=== PATIENT | female | born 1950 | race Caucasian/White ===

== ENCOUNTER 2018-04-14 14:04 | Emergency (ER) | payer MEDICARE, OTHER ==
[~2018-04-14] VITALS: Ht 170.2 cm; Wt 87.3 kg
[2018-04-14 14:14] VITALS: BP 112/58
--- NOTE | 2018-04-14 14:40 | NUR ---
67f bib self with c/o 3/10 mid abdominal pain since this morning; denies n/v/d or fevers. Patient is aox4 to person, place, and situation. RR are even and unlabored. Abd soft and non tender. Patient denies any urinary complaints. Patient changed into gown. Er md sparrow by bedside examining pt. All needs met at this time. Will continue to monitor.
--- NOTE | 2018-04-14 14:50 | NUR ---
lab by bedside
[2018-04-14 14:53] LABS: APPEARANCE,URINE CLOUDY (CLEAR); BILIRUBIN,URINE NEGATIVE (NEGATIVE); BLOOD, URINE MODERATE (NEGATIVE); COLOR,URINE YELLOW (YELLOW); LEUKOCYTE ESTERASE ,URINE 2+ (NEGATIVE); NITRITE, URINE POSITIVE (NEGATIVE); UGLUCOSE NEGATIVE (NEGATIVE)
--- NOTE | 2018-04-14 15:10 | NUR ---
pt to ct via josel[facility] accompanied by radiogy tech
[2018-04-14 15:11] LABS: RBC,URINE NONE SEEN /HPF (0-5); WBC,URINE 20-60 /HPF (0-5)
[2018-04-14 15:16] LABS: BASOPHILS # (AUTO) 0.1 K/uL (0.00-0.22); BASOPHILS % (AUTO) 0.8 % (0.0-2.0); EOSINOPHILS # (AUTO) 0.2 K/uL (0-0.4); EOSINOPHILS % (AUTO) 2.9 % (0.0-4.0); HEMATOCRIT 38.6 % (36-48); HEMOGLOBIN 12.3 g/dL (12.0-16.0); LYMPHOCYTES # (AUTO) 2.2 K/uL (2.5-16.5); LYMPHOCYTES % (AUTO) 34.6 % (20.5-51.1); MEAN CORPUSCULAR HEMOGLOBIN 30 pg (27-31); MEAN CORPUSCULAR HGB CONC 32 g/dL (33-37); MEAN CORPUSCULAR VOLUME 92.7 fL (80-94); MONOCYTES # (AUTO) 0.8 K/uL (0.8-1.0); NEUTROPHILS # (AUTO) 3.1 K/uL (1.8-7.7); NEUTROPHILS % (AUTO) 48.7 % (42.2-75.2); PLATELET COUNT (AUTO) 211 K/uL (140-450); RED BLOOD CELL COUNT(AUTO) 4.17 MIL/uL (4.20-5.40); RED CELL DISTRIBUTION WIDTH 14.8 % (11.6-13.7); WHITE BLOOD COUNT (AUTO) 6.4 K/uL (4.8-10.8)
--- NOTE | 2018-04-14 15:19 | NUR ---
pt returned from ct via gurney accompanied by seating and mobility technologist and returned to rm 12 without incidient.
[2018-04-14] MEDS ORDERED: NITROFURANTOIN 100 MG CAP PO SCH (15:20)
[2018-04-14 15:34] LABS: ANION GAP 12.8 (8-16); CARBON DIOXIDE 30.2 mmol/L (21-32)
[2018-04-14 15:42] LABS: ALBUMIN 3.3 g/dL (3.4-5.0); TOTAL BILIRUBIN 0.3 mg/dL (0.0-1.0)
[2018-04-14 16:17] VITALS: BP 119/79
== END 2018-04-14 16:16 | disposition home or self-care (01) ==
LOC: MED 14:04
DX: N39.0 Urinary tract infection, site not specified (principal); K59.00 Constipation, unspecified
CPT/HCPCS: 36415; 80053; 81001; 83690; 85025; 87086; 87186; 99284